=== PATIENT | male | born 1975 | race Caucasian/White ===

== ENCOUNTER → 2022-04-21 13:12 | Outpatient (BNVA) | payer BC, SELFPAY | PROVIDERS: Visit Provider Nurse Practitioner Family | DX: M25.50 Pain in unspecified joint (principal); M79.10 Myalgia, unspecified site; M19.90 Unspecified osteoarthritis, unspecified site; W57.XXXA Bitten or stung by nonvenomous insect and other nonvenomous arthropods, initial encounter | CPT/HCPCS: 80053; 86618; 86666; 86757 ==